=== PATIENT | female | born 1960 | race American Indian/Alaskan Native ===

== ENCOUNTER 2016-04-20 07:04 | Day surgery (SDC) | payer BC ==
[2016-04-15 15:00] LABS: Basophils % (Auto) 0.3 % (0.0-1.8); Eosinophils % (Auto) 0.8 % (0.0-4.3); Hematocrit 36.8 % (30.3-42.9); Hemoglobin 12.1 gm/dl (10.1-14.3); Mean Corpuscular HGB Conc 33 % (30-34); Mean Corpuscular Hemoglobin 30 pg (28-32); Mean Corpuscular Volume 91 fl (79-97); Platelet Count 242 K/mm3 (140-440); Red Blood Count 4.04 M/mm3 (3.65-5.03); Red Cell Distribution Width 14.2 % (13.2-15.2); White Blood Count 12.9 K/mm3 (4.5-11.0)
--- NOTE | 2016-04-15 15:04 | Anesthesia Consultation ---
Anesthesia Consult and Med Hx - Airway Anesthetic Teeth Evaluation: Good, Partials (upper and lower) ROM Head & Neck: Adequate Mental/Hyoid Distance: Adequate Mallampati Class: Class III Intubation Access Assessment: Probably Good - Pulmonary Exam CTA: Yes - Cardiac Exam Cardiac Exam: RRR - Pre-Operative Health Status ASA Pre-Surgery Classification: ASA2 Proposed Anesthetic Plan: Epidural, Spinal - Pulmonary Hx Smoking: No Hx Sleep Apnea: Yes (DX SLEEP APNEA,NO CPAP USE.) - Cardiovascular System Hx Hypertension: Yes (X 20 YRS) - Other Systems Hx Cancer: No Hx Obesity: Yes (BMI 42.9) - Additional Comments Anesthesia Medical History Comments: No prior anesthesia problems. Pt obese, HTN , hyperlipidemia, and was diagnosed with LUCERO years ago with no CPAP usage.
[2016-04-15 15:11] LABS: INR 0.94 (0.87-1.13)
[2016-04-15 15:12] LABS: Partial Thromboplastin Time 31.1 Sec. (24.2-36.6)
[2016-04-15 15:18] LABS: Alanine Aminotransferase 26 units/L (7-56); Albumin 4.3 g/dL (3.9-5); Albumin/Globulin Ratio 1.1 %; Alkaline Phosphatase 113 units/L (35-129); Anion Gap 18 mmol/L; BUN/Creatinine Ratio 23.33; Bilirubin,Total 0.3 mg/dL (0.1-1.2); Blood Urea Nitrogen 14 mg/dL (7-17); Calcium 9.3 mg/dL (8.4-10.2); Carbon Dioxide 27 mmol/L (22-30); Chloride 98.9 mmol/L (98-107); Glucose 93 mg/dL (65-100); Potassium 3.8 mmol/L (3.6-5.0); Sodium 140 mmol/L (137-145); Total Protein 8.1 g/dL (6.3-8.2)
[~2016-04-20 07:04] MED LIST: LACTATED RINGERS 1,000 ML IV SCH; PEPCID PO NR; VANCOMYCIN/NS 1 GM/250 ML 250 ML IV NR; VERSED IV NR
[2016-04-20] MEDS ORDERED: MARCAINE-EPI 0.5%-1:200,000 INFILTRATI ONE ×3 (08:06→09:59)
[2016-04-20] MEDS ORDERED: DECADRON ONE ×2 (08:06→10:01)
[2016-04-20] MEDS ORDERED: NEURONTIN PO NR (08:10)
[2016-04-20 08:11] LABS: Basophils % (Auto) 0.5 % (0.0-1.8); Eosinophils % (Auto) 1.6 % (0.0-4.3); Hematocrit 36.9 % (30.3-42.9); Hemoglobin 12.1 gm/dl (10.1-14.3); Mean Corpuscular HGB Conc 33 % (30-34); Mean Corpuscular Hemoglobin 29 pg (28-32); Mean Corpuscular Volume 90 fl (79-97); Platelet Count 227 K/mm3 (140-440); Red Blood Count 4.12 M/mm3 (3.65-5.03); White Blood Count 10.8 K/mm3 (4.5-11.0)
[2016-04-20] MEDS ORDERED: MORPHINE ONE (08:46)
[2016-04-20] MEDS ORDERED: XYLOCAINE MPF 2% ONE (08:48)
[2016-04-20] MEDS ORDERED: VERSED ONE (08:48)
[2016-04-20] MEDS ORDERED: DIPRIVAN 10 MG/ML IV ONE (09:20)
[2016-04-20] MEDS ORDERED: NACL 0.9% 1000 ML 1,000 ML ONE (09:36)
[2016-04-20] MEDS ORDERED: DILAUDID ONE ×2 (09:46→09:54)
[2016-04-20] MEDS ORDERED: DEPO-MEDROL INTRA-ARTI ONE (09:58)
[2016-04-20] MEDS ORDERED: NEOSPORIN GU IR ONE (09:58)
[2016-04-20] MEDS ORDERED: MORPHINE IM ONE (09:58)
[2016-04-20] MEDS ORDERED: TORADOL IV ONE (09:58)
[2016-04-20] MEDS ORDERED: NACL INFILTRATI ONE (09:59)
[2016-04-20] MEDS ORDERED: NACL 0.9% IR ONE (09:59)
[2016-04-20] MEDS ORDERED: TRANEXAMIC ACID IV ONE (10:00)
[2016-04-20] MEDS ORDERED: NACL P/F VIAL (10 ML) IV ONE (10:00)
[2016-04-20] MEDS ORDERED: ZOFRAN ONE (10:01)
[2016-04-20] MEDS ORDERED: ZOFRAN IM ONE (12:30)
[2016-04-20 12:38] VITALS: BP 120/64
--- NOTE | 2016-04-20 12:50 | Post Anesthesia Evaluation ---
- Post Anesthesia Evaluation Patient Participated: Yes Airway Patent: Yes Stable Respiratory Function: Yes Nausea/Vomiting: No Temp > 96.8F: Yes Pain Manageable: Yes Adequeate Hydration: Yes Anesthesia Complications: No Block Receding Appropriately: Not Applicable Patient on Ventilator: No
--- NOTE | 2016-04-21 19:56 | Operative Report ---
PREOPERATIVE DIAGNOSIS: Osteoarthritis, medial compartment of the right knee joint. PROCEDURE: Partial medial knee replacement arthroplasty. SURGEON: Gail Fregoso MD LOCOMOTIVE BOILERMAKER: Katerin Oswald RN ANESTHESIA: General. COMPLICATIONS: None. FINDINGS: The patient was found to have severe arthritis at the medial compartment of the joint. Lateral compartment was normal. There was mild wear of the patellofemoral joint. PROCEDURE IN DETAIL: Once the patient was in surgical room, a time-out was carried out to identify the patient and procedure. Once this was done, the procedure was carried out by prepping and draping of the knee in the usual fashion. The use of an assistant professor of psychology was required secondary to the complexity of the case. A 10 cm incision was carried out medial to the joint. This was carried out to subcutaneous tissues, this allowed for exposure of the joint, a medial parapatellar with vastus extension was carried out. Once the partial synovectomy, the knee was carried out on the medial side. The knee was placed in flexion. At this point, using the [employer] instrumentation, cutting 4 mm of the tibial surface was done. Once this was carried out, the flexion and extension gaps were measured. The knee was cut distally in this fashion without any problems cutting the femur and the tibia. The trial components were inserted, trialing of the knee was done without any problems or complications. The procedure was continued at this point by fixation of all the components. The knee was placed through a full range of motion when the knee was ____ without any problems. The knee was irrigated with tranexamic acid, Marcaine with epinephrine, and closure with Vicryl suture all the way up to the skin, the skin with skin clips. The patient tolerated the procedure well. There were no complications. JOB# [id number] COLLEEN/JANUSZ
== END 2016-04-20 13:52 | disposition home or self-care (01) ==
LOC: OR 07:04 → EDSTATUS 17:30
DX: M17.11 Unilateral primary osteoarthritis, right knee (principal); I10 Essential (primary) hypertension; E66.9 Obesity, unspecified; Z68.41 Body mass index [BMI] 40.0-44.9, adult; Z82.49 Family history of ischemic heart disease and other diseases of the circulatory system
CPT/HCPCS: 27446; 36415; 64447; 80053; 85025; 85610; 85730; 88304; 88311; 97116; 97161; 97760; C1776; J1030; J1100; J1170; J1885; J2250; J2270; J2405; J2704; J3370; J7030; J7120; 88305

== ENCOUNTER 2016-08-24 06:00 | Day surgery (SDC) | payer BC ==
[2016-08-20 08:47] LABS: Basophils % (Auto) 0.4 % (0.0-1.8); Eosinophils % (Auto) 1.1 % (0.0-4.3); Hematocrit 36.4 % (30.3-42.9); Mean Corpuscular HGB Conc 33 % (30-34); Mean Corpuscular Hemoglobin 30 pg (28-32); Mean Corpuscular Volume 90 fl (79-97); Platelet Count 243 K/mm3 (140-440); Red Blood Count 4.05 M/mm3 (3.65-5.03); Red Cell Distribution Width 13.8 % (13.2-15.2); White Blood Count 11.4 K/mm3 (4.5-11.0)
--- NOTE | 2016-08-20 08:51 | Anesthesia Consultation ---
Anesthesia Consult and Med Hx Date of service: 08/20/16 - Airway Anesthetic Teeth Evaluation: Partials (upper and lower) ROM Head & Neck: Adequate Mental/Hyoid Distance: Adequate Mallampati Class: Class II Intubation Access Assessment: Probably Good - Pulmonary Exam CTA: Yes - Cardiac Exam Cardiac Exam: RRR - Pre-Operative Health Status ASA Pre-Surgery Classification: ASA3 Proposed Anesthetic Plan: General Nerve Block: adductor canal - Pulmonary Hx Smoking: No Hx Sleep Apnea: Yes (DX SLEEP APNEA,NO CPAP USE.) - Cardiovascular System Hx Hypertension: Yes (X 20 YRS) - Central Nervous System Hx Seizures: No CVA: No - Endocrine Hx Renal Disease: No Hx Cirrhosis: No Hx Insulin Dependent Diabetes: No Hx Hyperthyroidism: No - Other Systems Hx Cancer: No Hx Obesity: Yes (morbid) - Additional Comments Anesthesia Medical History Comments: reports that spinal could not be placed for last knee replacement by anesthesiologist. Would like general with adductor canal block.
[2016-08-20 09:02] LABS: Alanine Aminotransferase 26 units/L (7-56); Albumin 3.9 g/dL (3.9-5); Alkaline Phosphatase 115 units/L (35-129); Anion Gap 17 mmol/L; BUN/Creatinine Ratio 24.28; Blood Urea Nitrogen 17 mg/dL (7-17); Calcium 9.3 mg/dL (8.4-10.2); Carbon Dioxide 27 mmol/L (22-30); Chloride 99.6 mmol/L (98-107); Glucose 159 mg/dL (65-100); Potassium 3.6 mmol/L (3.6-5.0); Sodium 140 mmol/L (137-145); Total Protein 7.7 g/dL (6.3-8.2)
[2016-08-20 10:02] LABS: INR 0.99 (0.87-1.13)
[2016-08-20 10:04] LABS: Partial Thromboplastin Time 29.8 Sec. (24.2-36.6)
[~2016-08-24 06:00] MED LIST changes: +DEPO-MEDROL INTRA-ARTI ONE; -LACTATED RINGERS 1,000 ML IV SCH; +MARCAINE-EPI 0.5%-1:200,000 INFILTRATI ONE; +MORPHINE IM ONE; +NACL 0.9% 1000 ML 1,000 ML IV SCH; +NACL INFILTRATI ONE; +NEURONTIN PO NR; +SUBLIMAZE IV PRN; +TORADOL IV ONE; +TRANEXAMIC ACID IV ONE; +VANCOMYCIN/NS 1 GM/250 ML 1 GM/250 ML BAG IV NR; -VANCOMYCIN/NS 1 GM/250 ML 250 ML IV NR
[2016-08-24] MEDS ORDERED: MARCAINE-EPI/PF 0.5%-1:200,000 INFILTRATI ONE ×2 (07:01→07:30)
[2016-08-24] MEDS ORDERED: CLONIDINE 1,000 MCG/10 ML VIAL EP ONE (07:02)
[2016-08-24] MEDS ORDERED: DECADRON ONE ×2 (07:02→07:05)
[2016-08-24] MEDS ORDERED: XYLOCAINE 1% 20 mL ONE (07:02)
[2016-08-24] MEDS ORDERED: SUBLIMAZE ONE (07:05)
[2016-08-24] MEDS ORDERED: XYLOCAINE MPF 2% ONE (07:05)
[2016-08-24] MEDS ORDERED: ZOFRAN ONE ×2 (07:05→10:01)
[2016-08-24] MEDS ORDERED: DIPRIVAN 10 MG/ML IV ONE (07:05)
[2016-08-24] MEDS ORDERED: DEPO-MEDROL ONE (07:14)
[2016-08-24] MEDS ORDERED: TORADOL ONE ×2 (07:14→08:48)
[2016-08-24] MEDS ORDERED: NEOSPORIN GU IR ONE ×3 (07:15→08:42)
[2016-08-24] MEDS ORDERED: NACL ONE (07:15)
[2016-08-24] MEDS ORDERED: TRANEXAMIC ACID ONE (07:15)
[2016-08-24] MEDS ORDERED: MORPHINE ONE (07:15)
[2016-08-24] MEDS ORDERED: DILAUDID ONE (08:23)
[2016-08-24] MEDS ORDERED: NACL 0.9% IR ONE (08:42)
[2016-08-24] MEDS ORDERED: NACL INFILTRATI ONE (08:45)
[2016-08-24] MEDS ORDERED: MARCAINE-EPI 0.5%-1:200,000 INFILTRATI ONE ×2 (08:45→09:00)
[2016-08-24] MEDS ORDERED: TRANEXAMIC ACID IV ONE (08:55)
[2016-08-24] MEDS ORDERED: MORPHINE IM ONE (09:00)
[2016-08-24] MEDS ORDERED: DEPO-MEDROL INTRA-ARTI ONE (09:00)
[2016-08-24] MEDS ORDERED: TORADOL IV ONE (09:00)
--- NOTE | 2016-08-24 09:36 | Post Anesthesia Evaluation ---
- Post Anesthesia Evaluation Patient Participated: Yes Airway Patent: Yes Stable Respiratory Function: Yes Nausea/Vomiting: No Temp > 96.8F: Yes Pain Manageable: Yes Adequeate Hydration: Yes Anesthesia Complications: No
--- NOTE | 2016-08-24 09:37 | Short Stay Summary ---
Short Stay Documentation Date of service: 08/24/16 - History H&P: obtained from office - Allergies and Medications Current Medications: Allergies amoxicillin Allergy (Verified 04/08/16 13:21) Hives Sulfa (Sulfonamide Antibiotics) Allergy (Verified 04/08/16 13:21) Hives Home Medications Medication Instructions Recorded Confirmed Last Taken Type Amlodipine Besylate/Benazepril 1 cap PO DAILY 04/15/16 08/19/16 04/20/16 06:00 History [Amlodipine-Benazepril 5-20 mg] Aspirin [Adult Low Dose Aspirin EC] 81 mg PO DAILY 04/15/16 08/19/16 04/10/16 History AtorvaSTATin [Lipitor] 40 mg PO DAILY 04/15/16 08/19/16 04/20/16 06:00 History Triamter/Hctz 37.5-25 mg 1 tab PO DAILY 04/15/16 08/19/16 04/20/16 06:00 History [Maxzide-25] Cetirizine HCl [ZyrTEC] 10 mg PO DAILY 08/19/16 08/19/16 Unknown History Hydroxyzine HCl 25 mg PO PRN PRN 08/19/16 08/19/16 Unknown History Montelukast [Singulair] 10 mg PO PRN PRN 08/19/16 08/19/16 Unknown History Active Medications Celecoxib (Celebrex) 200 mg PO PREOP NR Stop: 08/24/16 23:59 Famotidine (Pepcid) 20 mg PO PREOP NR Stop: 08/24/16 23:59 Last Admin: 08/24/16 07:00 Dose: 20 mg Fentanyl (Sublimaze) 100 mcg IV PRN PRN PRN Reason: Sedation Stop: 08/24/16 23:59 Gabapentin (Neurontin) 600 mg PO PREOP NR Stop: 08/24/16 23:59 Last Admin: 08/24/16 07:00 Dose: 600 mg Vancomycin HCl (Vancomycin/Ns 1 Gm/250 Ml) 1 gm in 250 mls @ 166.667 mls/hr IV PREOP NR PRN Reason: Protocol Stop: 08/24/16 23:00 Last Admin: 08/24/16 07:27 Dose: 166.667 mls/hr Sodium Chloride (Nacl 0.9% 1000 Ml) 1,000 mls @ 75 mls/hr IV DIRECT MILLI Last Admin: 08/24/16 06:40 Dose: 75 mls/hr Midazolam HCl (Versed) 2 mg IV PREOP NR Stop: 08/24/16 23:59 Last Admin: 08/24/16 07:07 Dose: 2 mg - Brief post op/procedure progress note Date of procedure: 08/24/16 Pre-op diagnosis: degenerative arthriotis left knee Post-op diagnosis: same Procedure: Partial medial knee arhtroplasty Anesthesia: GETA Findings: DJD of the medial and patello femoral joint Surgeon: KRYSTYNA AVITIA Kitchen Mechanic: SEGUNDO CORDOVA Estimated blood loss: minimal Pathology: none Specimen disposition: discarded Condition: stable - Disposition Condition at discharge: Stable Disposition: [id number] HOME UNDER [facility] - Discharge Diagnoses (1) Left knee DJD Status: Acute Qualifiers: Osteoarthritis type: O Short Stay Discharge Plan Follow up with: PRIMARY CARE, [Primary Care Provider] - 7 Days
[2016-08-24] MEDS ORDERED: NORCO 5/325 PO PRN (10:06)
[2016-08-24] MEDS ORDERED: ZOFRAN IV PRN (10:06)
[2016-08-24 11:46] VITALS: BP 144/60
--- NOTE | 2016-08-24 14:02 | Operative Report ---
PREOPERATIVE DIAGNOSIS: Osteoarthritis of the left knee. PROCEDURE: Left partial knee arthroplasty, medial compartment, left knee. SURGEON: Gail Fregoso MD DIMENSIONAL ENGINEER: Katerin Oswald RN ANESTHESIA: General. COMPLICATIONS: None. COMPONENTS: Quintin. FINDINGS: The patient was found to have severe arthritis of the medial compartment and also some wear of the patellofemoral joint. There were some mild changes on the lateral side. Cruciate ligament normal. Lateral meniscus normal. PROCEDURE IN DETAIL: Once the patient was in surgical room, a time-out was carried out to identify the patient and procedure, prepping and draping of the patient in usual fashion. Procedure was carried out by elevation of the leg, exsanguination ____ elevation of tourniquet to 300 mmHg. The procedure was carried out by making an incision in the medial aspect of the knee joint on the left. Dissection was carried out to subcutaneous tissues. The capsule of the knee was exposed. The capsule was incised on the medial side. An extension was carried out in a subvastus approach. Once this was carried out, a partial medial synovectomy of the knee was carried out. At this point, the knee was placed in flexion, the Arthrex applied, exposure of the knee was done. Evaluation of the knee was carried out with the above-mentioned findings. At this point, the procedure was continued by doing the surgical reconstruction. Using the PKR instrumentation from the [employer], 4 mm of bone were cut from the tibial surface. Following this, the measuring of the flexion and extension gaps were done. Once this was carried out, the procedure was continued by the cutting preparation of the femur and tibia. The femur was cut with a jig, to a size 3, the tibial cut was jigged to a size 3, the tibial spacer was an 8 mm. Once all this was determined, the procedure was continued by irrigation of the knee. Infiltration of the knee ____ with epinephrine, 8% solution, the procedure continued by the fixation of all the components. Once the components were fixed, the range of motion of the knee was found to be stable. The procedure terminated at this point. Tranexamic acid used for irrigation. The wound was closed with #1 Vicryl and multiple interrupted sutures to close the capsule, the vastus snip was closed with Vicryl suture, subcutaneous tissue was closed with 2-0 Vicryl. The skin with skin clips. The compression bandage was applied. The patient tolerated the procedure well. There were no complications. JOB# [id number] COLLEEN/JANUSZ
== END 2016-08-24 12:03 | disposition home health service (06) ==
LOC: OR 06:00
DX: M17.12 Unilateral primary osteoarthritis, left knee (principal); I10 Essential (primary) hypertension; E66.01 Morbid (severe) obesity due to excess calories; Z68.38 Body mass index [BMI] 38.0-38.9, adult; Z88.2 Allergy status to sulfonamides; Z88.1 Allergy status to other antibiotic agents; Z72.89 Other problems related to lifestyle; Z96.651 Presence of right artificial knee joint; Z79.899 Other long term (current) drug therapy; Z82.49 Family history of ischemic heart disease and other diseases of the circulatory system
CPT/HCPCS: 27446; 36415; 64450; 80053; 85025; 85610; 85730; 88304; 88311; 97161; 97535; C1776; J0735; J1030; J1100; J1170; J1885; J2250; J2270; J2405; J2704; J3010; J3370; J7030; 88305